=== PATIENT | female | born 1935 | race Caucasian/White ===

== ENCOUNTER 2021-06-13 10:40 | Emergency (ER) | payer MEDICARE, OTHER ==
[~2021-06-13] VITALS: Ht 165.1 cm; Wt 74.8 kg
[2021-06-13] MEDS ORDERED: ELIQUIS5 MG PO ×2 (13:28→14:02)
[2021-06-13] MEDS ORDERED: METOPROLOL SUC200 MG PO (13:29)
[2021-06-13] MEDS ORDERED: CITALOPRAM HBR10 MG PO (13:29)
[2021-06-13] MEDS ORDERED: LOSARTAN POTASS50 MG PO (13:29)
[2021-06-13] MEDS ORDERED: ROSUVASTATIN CA10 MG PO (13:30)
[2021-06-13] MEDS ORDERED: TOPROL XL200 MG PO (14:02)
== END 2021-06-13 14:15 | disposition home or self-care (01) ==
LOC: ED 10:40
DX: Z76.0 Encounter for issue of repeat prescription (principal); I48.92 Unspecified atrial flutter; Z79.899 Other long term (current) drug therapy
CPT/HCPCS: 99281

== ENCOUNTER 2021-10-08 23:55 | Emergency (ER) | payer MEDICARE, OTHER ==
[~2021-10-08] VITALS: Ht 165.1 cm; Wt 83.5 kg
[~2021-10-08 23:55] MED LIST: CITALOPRAM HBR10 MG PO; ELIQUIS5 MG PO; LOSARTAN POTASS50 MG PO; METOPROLOL SUC200 MG PO; ROSUVASTATIN CA10 MG PO; TOPROL XL200 MG PO
--- NOTE | 2021-10-09 06:39 | EKG ---
[facility] [address] [facility] [place], [place] [address] Signed Atrial fibrillation with rapid ventricular response with premature ventricular or aberrantly conducted complexes Marked ST abnormality, possible inferior subendocardial injury Marked ST abnormality, possible anterolateral subendocardial injury Abnormal ECG No previous ECGs available Confirmed by ENRIQUE KHAN MD ([id number]) on 10/09/2021 6:39:34 AM Electronically Signed By: ENRIQUE KHAN MD 10/09/21 0639 PATIENT NAME: MAURICIO STANTON Electrocardiogram DATE OF : 35 PHYSICIAN: ENRIQUE KHAN MD REPORT #: [id number] REPORT IS CONFIDENTIAL AND NOT TO BE RELEASED WITHOUT AUTHORIZATION
--- NOTE | 2021-10-09 06:40 | EKG ---
[facility] [address] [facility] [place] [address] Signed Atrial fibrillation Marked ST abnormality, possible inferior subendocardial injury Abnormal ECG When compared with ECG of 08-OCT-2021 23:58, (Unconfirmed) ST less depressed in Anterolateral leads T wave inversion less evident in Inferior leads T wave inversion no longer evident in Lateral leads Confirmed by ENRIQUE KHAN MD ([id number]) on 10/09/2021 6:40:10 AM Electronically Signed By: ENRIQUE KHAN MD 10/09/21 0640 PATIENT NAME: MAURICIO STANTON Electrocardiogram DATE OF : 35 PHYSICIAN: ENRIQUE KHAN MD REPORT #: [id number] REPORT IS CONFIDENTIAL AND NOT TO BE RELEASED WITHOUT AUTHORIZATION
== END 2021-10-09 07:47 | disposition short-term general hospital (02) ==
LOC: ED 23:55
DX: I21.4 Non-ST elevation (NSTEMI) myocardial infarction (principal); J96.91 Respiratory failure, unspecified with hypoxia; I11.0 Hypertensive heart disease with heart failure; I50.9 Heart failure, unspecified; I48.92 Unspecified atrial flutter; Z79.01 Long term (current) use of anticoagulants; Z79.899 Other long term (current) drug therapy; Z20.822 Contact with and (suspected) exposure to COVID-19
CPT/HCPCS: 36415; 71045; 74177; 80053; 83690; 83735; 83880; 84484; 85025; 85610; 85730; 93005; 93010; 96375; 99285-25; J1644; J1940; Q9967; U0003

== ENCOUNTER 2023-03-22 12:31 | Inpatient (IN) | payer MEDICARE, OTHER ==
[~2023-03-22] VITALS: Ht 165.1 cm; Wt 78.1 kg
[2023-03-22] VITALS (19 sets, daily range): BP systolic 74–144; BP diastolic 48–130
--- OUTSIDE RECORDS SUMMARY | ~2023-03-22 | XMS | Continuity of Care Document ---
Demographics + + + | Address | [address] | | | [place] [address] | + + + | Preferred Language | Unknown | + + + | Marital Status | | + + + | Buddhist Affiliation | Unknown | + + + | Race | White | + + + | Ethnic Group | Not or | + + + Author + + + | Author | Likely | + + + | Organization | Likely | + + + | Address | [address] | | | [place] [address] | + + + | Phone | | + + + Care Team Providers + + + + | Care Health Policy Nurse Name | Role | Phone | + + + + Unavailable | Unavailable | + + + + Allergies No information. Encounters No information. Functional Status No information. Immunizations No information. Medications No information. 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 Results/Labs No information. Social History +--------+ + + | date | description | facility | +--------+ + + Vital Signs No information."
--- OUTSIDE RECORDS SUMMARY | ~2023-03-22 | XMS | Continuity of Care Document ---
Demographics + + + | Address | [address] | | | [place] [address] | + + + | Preferred Language | Unknown | + + + | Marital Status | | + + + | Gnosticism Affiliation | Unknown | + + + | Race | White | + + + | Ethnic Group | Not or | + + + Author + + + | Author | [place] | + + + | Organization | [place] | + + + | Address | [address] | | | [place] [address] | + + + | Phone | | + + + Care Team Providers + + + + | Care Cutting Table Operator First Name | Role | Phone | + [...] + + + Procedures No information. Results/Labs +--------+--------+ +---------+--------+---------+ | test | date | facility | value | unit | notes | +--------+--------+ +---------+--------+---------+ + + | Result panel 1 | + + + + + +---------+ + + | BILIRUBIN, | 2023-03-22 | [facility] | 0.4 | ng/dl | (missing) | | TOTAL | 12:38 | [place] [facility] | | | | + + + +---------+ + + | BASOPHILS | 2023-03-22 | [facility] | 0.5 | % | (missing) | | | 12:38 | [place] | | | | + + + +---------+ + + | | 2023-03-22 | [facility] | 0.83 | (missing) | (missing) | | ALBUMIN/GLOB | 12:38 | [place] | | | | | [facility] | | | | | | + + + +---------+ + + | CREATININE, | 2023-03-22 | [facility] | 1.07 | mg/dl | (missing) | | SERUM | 12:38 | [facility] [facility] | | | | + + + +---------+ + + | EOSINOPHILS | 2023-03-22 | [facility] | 1.6 | % | (missing) | | | 12:38 | [place] | | | | + + + +---------+ + + | CHLORIDE | 2023-03-22 | [facility] | 102 | mmol/l | (missing) | | | 12:38 | [place] | | | | + + + +---------+ + + | HEMOGLOBIN | 2023-03-22 | [facility] | 12.0 | g/dl | (missing) | | | 12:38 | [place] | | | | + + + +---------+ + + | WBC | 2023-03-22 | [facility] | 12.2 | k/ul | (missing) | | | 12:38 | [place] | | | | + + + +---------+ + + | SODIUM | 2023-03-22 | [facility] | 138 | mmol/l | (missing) | | | 12:38 | [place] | | | | + + + +---------+ + + | ANION GAP | 2023-03-22 | [facility] | 14.0 | (missing) | (missing) | | | 12:38 | [place] | | | | + + + +---------+ + + | LYMPHOCYTES | 2023-03-22 | [facility] | 15.4 | % | (missing) | | | 12:38 | [place] | | | | + + + +---------+ + + | RDW | 2023-03-22 | [facility] | 15.6 | (missing) | (missing) | | | 12:38 | [place] | | | | + + + +---------+ + + | ALT (SGPT) | 2023-03-22 | [facility] | 17 | u/l | (missing) | | | 12:38 | [place] | | | | + + + +---------+ + + | | 2023-03-22 | [facility] | 17.75 | (missing) | (missing) | | BUN/CREATINI | 12:38 | [place] | | | | | NE RATIO | | | | | | + + + +---------+ + + | AST (SGOT) | 2023-03-22 | [facility] | 18 | u/l | (missing) | | | 12:38 | [place] | | | | + + + +---------+ + + | UREA | 2023-03-22 | [facility] | 19 | mg/dl | (missing) | | NITROGEN | 12:38 | [place] | | | | + + + +---------+ + + | GLUCOSE | 2023-03-22 | [facility] | 202 | mg/dl | (missing) | | | 12:38 | [place] | | | | + + + +---------+ + + | CARBON | 2023-03-22 | [facility] | 26 | mmol/l | (missing) | | DIOXIDE | 12:38 | [place] | | | | + + + +---------+ + + | ALBUMIN | 2023-03-22 | [facility] | 3.3 | g/dl | (missing) | | | 12:38 | [place] | | | | + + + +---------+ + + | RBC | 2023-03-22 | [facility] | 3.78 | m/ul | (missing) | | | 12:38 | [place] | | | | + + + +---------+ + + | MCH | 2023-03-22 | [facility] | 31.9 | (missing) | (missing) | | | 12:38 | [place] | | | | + + + +---------+ + + | MCHC | 2023-03-22 | [facility] | 32.5 | g/dl | (missing) | | | 12:38 | [place] | | | | + + + +---------+ + + | HEMATOCRIT | 2023-03-22 | [facility] | 37.1 | % | (missing) | | | 12:38 | [place] | | | | + + + +---------+ + + | GLOBULIN | 2023-03-22 | [facility] | 4.0 | g/dl | (missing) | | | 12:38 | [place] | | | | + + + +---------+ + + | POTASSIUM | 2023-03-22 | [facility] | 4.0 | mmol/l | (missing) | | | 12:38 | [place] | | | | + + + +---------+ + + | MONOCYTES | 2023-03-22 | [facility] | 4.8 | % | (missing) | | | 12:38 | [place] | | | | + + + +---------+ + + | PLATELET | 2023-03-22 | [facility] | 410 | k/ul | (missing) | | COUNT | 12:38 | [place] | | | | + + + +---------+ + + | GLOMERULAR | 2023-03-22 | [facility] | 50 | ml/min | (missing) | | FILTRATION | 12:38 | [place] | | | | | RATE,EST | | | | | | + + + +---------+ + + | PROTEIN, | 2023-03-22 | [facility] | 7.3 | g/dl | (missing) | | TOTAL | 12:38 | [place] | | | | + + + +---------+ + + | NEUTROPHILS | 2023-03-22 | [facility] | 77.7 | % | (missing) | | | 12:38 | [place] | | | | + + + +---------+ + + | ALKALINE | 2023-03-22 | [facility] | 81 | u/l | (missing) | | PHOSPHATASE | 12:38 | [place] | | | | + + + +---------+ + + | CALCIUM | 2023-03-22 | [facility] | 9.0 | mg/dl | (missing) | | | 12:38 | [place] | | | | + + + +---------+ + + | MCV | 2023-03-22 | [facility] | 98.2 | fl | (missing) | | | 12:38 | [place] | | | | + + + +---------+ + + Social History +--------+ + + | date | description | facility | +--------+ + + Vital Signs No information."
[2023-03-22 15:13] LABS: BASOPHILS 0.5 % (0-2); EOSINOPHILS 1.6 % (0-6); HEMATOCRIT 37.1 % (35.0-50.0); LYMPHOCYTES 15.4 % (24-44); MCH 31.9 (27-36); MCHC 32.5 g/dl (30-36); MCV 98.2 fl (81-99); MONOCYTES 4.8 % (0-12); NEUTROPHILS 77.7 % (39-80); PLATELET COUNT 410 K/uL (140-440); RBC 3.78 M/ul (4.3-5.7); RDW 15.6 (10.5-15.0)
[2023-03-22 15:20] LABS: ALBUMIN 3.3 g/dL (3.4-5.0); ALBUMIN/GLOBULIN RATIO 0.83 (1.1-2.4); BILIRUBIN, TOTAL 0.4 ng/dL (0.2-1.0); BUN/CREATININE RATIO 17.75 (6.0-28.6); CREATININE, SERUM 1.07 mg/dL (0.55-1.02); PROTEIN, TOTAL 7.3 g/dL (6.4-8.2)
--- NOTE | 2023-03-22 19:50 | NUR ---
PT ARRIVED TO UNIT VIA FLOAT RN AND CO FOUNDER AND PRESIDENT. PT TRANSITIONED TO CCU BED AND MONITOR. PT BP HYPOTENSIVE, PT ASYMPTOMATIC, DILT DRIP DECREASED TO 2.5MG/HR AND NS BOLUS STARTED. LABS OBTAINED. MULTIPLE RN'S ATTEMPTED TO START ANOTHER IV. PT ASSESSED, BEDSIDE RN SPOKE TO PT DAUGHTERS AND REVIEWED THE PLAN OF CARE FOR THE NIGHT. ALL QUESTIONS AND CONCERNS ANSWERED AT THIS TIME. CALL LIGHT WITH IN REACH.
[2023-03-22 20:27] LABS: BASOPHILS 0.2 % (0-2); EOSINOPHILS 0.1 % (0-6); HEMATOCRIT 34.3 % (35.0-50.0); HEMOGLOBIN 10.9 g/dL (12.0-18.0); LYMPHOCYTES 6.6 % (24-44); MCH 31.6 (27-36); MCHC 31.8 g/dl (30-36); MCV 99.3 fl (81-99); MONOCYTES 5.7 % (0-12); NEUTROPHILS 87.4 % (39-80); PLATELET COUNT 354 K/uL (140-440); RBC 3.45 M/ul (4.3-5.7); RDW 15.4 (10.5-15.0)
[2023-03-22 21:00] LABS: ABO B; RH NEGATIVE
[2023-03-22 21:01] LABS: ANTIBODY SCREEN NEGATIVE
--- NOTE | 2023-03-22 22:00 | NUR ---
PT HAS MULTIPLE REQUESTS AND QUESTIONS, RN ANSWERED TO THE BEST OF HER ABILITY. PATIENT HAS SEVERE DEMENTIA AND SHORT TERM MEMORY LOSS. PT EDUCATED ON WAYS TO URINATE, PT STILL UNABLE TO. MULTIPLE RN'S ATTEMPTED FOR ANOTHER IV AGAIN BUT UNSUCCESSFUL. PT REPOSITIONED AND EDUCATED TO NOT GET OUT OF BED WITHOUT HELP. BED ALARM ON AND CALL LIGHT WITHIN REACH.
--- NOTE | 2023-03-22 22:54 | NUR ---
PROVIDER UPDATED ON PT STATUS, CONTACTED FOR CONCERNS ABOUT PTS INABILITY TO URINATE. ORDERS RECIEVED. RN ALSO DISCUSSED PTS INADEQUATE PAIN CONTROL AND POTENTIAL EFFECTS OF BLEEDING AND KIDNEY FUNCTION WITH CURRENT MANAGMENT, ORDERS RECIEVED.
--- NOTE | 2023-03-22 23:18 | EKG ---
[facility] [address] [facility] [place] [address] Signed Atrial fibrillation with rapid ventricular response ST \T\ T wave abnormality, consider anterolateral ischemia Abnormal ECG When compared with ECG of 09-OCT-2021 03:31, T wave inversion now evident in Anterolateral leads Confirmed by Mini Shelley MD () on 03/22/2023 11:17:55 PM Electronically Signed By: MINI SHELLEY MD 03/22/23 2318 PATIENT NAME: MAXIMINOMAURICIO M Electrocardiogram DATE OF : 35 PHYSICIAN: MINI SHELLEY MD REPORT #: [id number] REPORT IS CONFIDENTIAL AND NOT TO BE RELEASED WITHOUT AUTHORIZATION
[2023-03-22 23:31] LABS: BILIRUBIN, URINE NEGATIVE (negative); BLOOD/HGB, URINE NEGATIVE (Negative); KETONE, URINE NEGATIVE (Negative); LEUK ESTERASE, URINE NEGATIVE (negative); NITRITE, URINE NEGATIVE (negative); PH, URINE 5.5 (5-7)
[2023-03-23] VITALS (58 sets, daily range): BP systolic 70–160; BP diastolic 41–132
--- NOTE | 2023-03-23 | NUR ---
PT GIVEN ORAL NORCO. KRUEGER CATHETER PLACED, 575ML OUT. PATIENT IS RESTLESS AND ANXIOUS. PT IS FORGETTING WHERE SHE IS AND WHY SHE IS IN THE HOSPITAL, RN REORIENTATED HER BUT PT WAS ONLY ORINETATED FOR 5 MINS BEFORE FORGETTING. PT HAS SEVERE DEMENTIA. PT HAS NO CONCERNS OR QUESTIONS AT THIS TIME. BED ALARM IN SET AND CALL LIGHT IS WITHIN REACH.
[2023-03-23 03:58] LABS: BASOPHILS 0.4 % (0-2); HEMATOCRIT 28.2 % (35.0-50.0); LYMPHOCYTES 12.9 % (24-44); MCH 31.1 (27-36); MCHC 31.8 g/dl (30-36); MCV 97.6 fl (81-99); MONOCYTES 7.1 % (0-12); NEUTROPHILS 79.6 % (39-80); PLATELET COUNT 305 K/uL (140-440); RBC 2.89 M/ul (4.3-5.7); RDW 15.2 (10.5-15.0)
--- NOTE | 2023-03-23 04:00 | NUR ---
PT ATTEMPTED TO USE BEDPAN AND WAS UNSUCCESSFUL. PT IS INCREASINGLY MORE CONFUSED AND HARDER TO REDIRECT BUT IS STILL REDIRECTABLE. PT ATTEMPTING TO GET OUT OF BED TO "GO TO HER ROOM" AND "TO GO OUTSIDE TO SMOKE A CIGARETTE". RN AT BEDSIDE FREQUENTLY, BED ALARM SET, CALL LIGHT WITHIN REACH.
[2023-03-23 04:13] LABS: ALBUMIN 2.8 g/dL (3.4-5.0); ALBUMIN/GLOBULIN RATIO 0.85 (1.1-2.4); ANION GAP 15.4 (7-21); BILIRUBIN, TOTAL 0.7 ng/dL (0.2-1.0); BUN/CREATININE RATIO 16.52 (6.0-28.6); CALCIUM 8.2 mg/dL (8.5-10.1); CREATININE, SERUM 1.21 mg/dL (0.55-1.02); MAGNESIUM 1.5 mg/dL (1.8-2.4); PHOSPHORUS, INORGANIC 3.3 mg/dL (2.5-4.9); POTASSIUM 4.4 mmol/L (3.5-5.1); PROTEIN, TOTAL 6.1 g/dL (6.4-8.2)
--- NOTE | 2023-03-23 07:00 | NUR ---
PROVIDER CONTACTED AND UPDATED ON BORDERLINE HYPONTENSIVE WELL MINIMAL URINE OUTPUT. NS BOLUS ORDERED AND .45%NS CONTINOUS FLUIDS DISCONTINUED. PT QUESTIONS AND CONCERNS ADDRESSED, BED ALARM ON, CALL LIGHT WITH IN REACH. REPORT GIVEN TO ONCOMING RN. DILT CONTINUING TO RUN AT 5MG/HR.
--- NOTE | 2023-03-23 07:34 | NUR ---
REPORT RECEIVED FROM NIGHT RN - PT RESTING IN BED ON BACK WITH EYES CLOSED AT THIS TIME, RR EVEN AND UNLABORED. BED ALARM ON WITH DOOR OPEN. DILT DRIP RATE CURRENTLY AT 5, HR 86. NS BOLUS INFUSING IN R FOREARM IV.
--- NOTE | 2023-03-23 08:36 | NUR ---
DILT DRIP TITRATED TO 2.5, HR SUSTAINING IN 80'S WITH REST IN BED. PT ORIENTED TO PLACE, SELF AND TIME - HOWEVER SOME ASPECTS OF CONVERSATION INDICATE SHORT TERM MEMORY LOSS. IV SITE PATENT X 2 - BOLUS CONTINUING TO INFUSE WITHOUT DIFFICULTY. KRUEGER PATENT AND DRAINED 25ML LAST HOUR. BED ALARM ON, PT ORIENTED TO CALL LIGHT - BUTTON PLACED FOR PT R/T INABILITY TO SEE. SIGNIFICANT VISION IMPARIMENT NOTED, PT STATES NORMAL.
--- NOTE | 2023-03-23 09:06 | NUR ---
PT'S DAUGHTER DAYLENE UPDATED VIA PHONE CALL ON PTS STATUS. DAUGHTER STATES PT IS ALWAYS CONFUSED AT HOME, DOES NOT HAVE A NORMAL SLEEP/WAKE CYCLE AND IS SOMETIMES FOUND OUTSIDE AT NIGHT TRYING TO SMOKE. SEVERE SHORT TERM MEMORY LOSS BASELINE ACCORDING TO DAUGHTER. DAUGHTER ALSO REASSURES THIS RN THAT SHE DOES NOT DRINK ALCOHOL.
--- NOTE | 2023-03-23 09:28 | NUR ---
PHYSICAL THERAPY IN ROOM TO ASSESS PT - HR SUSTAINING LESS THAN 100 WITH ACTIVITY.
--- NOTE | 2023-03-23 10:20 | NUR ---
MAG RIDER INFUSING - PT RESTING IN BED. PRN TYLENOL ADMINISTERED FOR 8/10 PAIN, PT ABLE TO PARTICIPATE WITH PHYSICAL THERAPY BED EXERCISES. FAMILY NOW IN ROOM.
[2023-03-23] MEDS ORDERED: ATORVASTATIN CA80 MG PO (10:42)
[2023-03-23] MEDS ORDERED: LO-DOSE ASPIRIN81 MG PO (10:43)
[2023-03-23] MEDS ORDERED: FUROSEMIDE40 MG PO (10:44)
[2023-03-23] MEDS ORDERED: PANTOPRAZOLE SO40 MG PO (10:45)
[2023-03-23] MEDS ORDERED: CITALOPRAM HBR40 MG PO (10:45)
[2023-03-23] MEDS ORDERED: TRAMADOL HCL50 MG PO (10:46)
[2023-03-23] MEDS ORDERED: POTASSIUM CHLO20 ME1 PO (10:46)
--- NOTE | 2023-03-23 12:10 | NUR ---
PT SITTING UP IN BED EATING LUNCH WITH ASSISTANCE FROM FAMILY. IV FLUIDS STARTED. URINE OUTPUT REMAINS LOW, TOTAL OF 30ML FOR LAST 2 HOURS. MD AWARE. WILL CONTINUE TO MONITOR. BP REMAINS SOFT. DILT DRIP AT 2.5. PT REMAINS FORGETFUL AND SIGNS OF DEMENTIA EVEN WITH FAMILY REORIENTING HER IN ROOM. BED ALARM ON.
[2023-03-23] MEDS ORDERED: CALCIUM PO (14:08)
[2023-03-23] MEDS ORDERED: [UNRECOGNIZED DRUG - OTHER] PO (14:08)
--- NOTE | 2023-03-23 14:33 | NUR ---
PT REQUESTS TO SIT AT EDGE OF BED - ABLE TO MOVE LEGS AND PULL SELF UP FROM RECLINING POSISTION TO EDGE OF BED. ORTHO STATIC BPS ATTEMTPED. PT ABLE TO STAND FOR APPROX 30 SECONDS USING FWW AND 2 STAFF ASSIST. BP NOT SIGNIFICANTLY DIFFERENT, HR ELEVATED TO 130'S WITH MOVEMENT. URINE OUTPUT HAS PICKED UP.
--- NOTE | 2023-03-23 15:30 | NUR ---
PT BECOMING AGGITATED/ANXIOUS IN BED, REMOVING GOWN AND PICKING WITH LINES. HR ELEVATED. STAFF AT BEDSIDE TO HELP REORIENT. BED ALARM ON. DILT DRIP TITRATED TO 5MG/HR.
--- NOTE | 2023-03-23 16:15 | NUR ---
PRN TYLENOL PROVIDED FOR 9/10 HEADACHE. PT ALSO REPORTS NAUSEA - ZOFRAN ADMINISTERED. ASSESSMENT UNCHANGED FROM PREVIOUS. REMAINS IN BED WITH CALL LIGHT IN REACH AND BED ALARM ON. DAUGHTERS AT SIDE ASSISTING WITH REORIENTING PT.
--- NOTE | 2023-03-23 17:37 | NUR ---
PT FOUND IN BED WITH IV PULLED AT TUBING CONNECTION WITH BLOOD ON BODY, GOWN REMOVED. PT REORIENTED, STATES "OTHER PEOPLE DID IT". PT REORIENTABLE TO SITUATION AND PLACE FOR MINUTES AT A TIME ONLY. BED LINENS CHANGED, IV SALVAGBLE AND REDRESSED.
--- NOTE | 2023-03-23 18:24 | NUR ---
prn toradol administered for 01/30 persistant pain in left pelvic region. dilt drip titrated to 7.5 mg/hr for sustained hr greater than 100. pt watching dvd player resting in bed. bed alarm on.
--- NOTE | 2023-03-23 19:00 | NUR ---
IN PT ROOM TO ASSESS PT.
--- NOTE | 2023-03-23 19:11 | NUR ---
MD NOTIFIED OF PT REPORTS OF INCREASE CENTRAL ABD PAIN WITH SOB AND NAUSEA. HR REMAINS ELEVATED DESPITE TITRATION OF DILT DRIP - BP HYPOTENSIVE. MD AT BEDSIDE TO ASSESS. NEW ORDERS RECEIVED FOR RATE CONTROL. NS BOLUS X1 STARTED.
--- NOTE | 2023-03-23 19:30 | NUR ---
INTO PT ROOM, PT REPORTS VERY ANXIOUS AND NEEDS MEDICATION FOR THIS, SAT WITH PATIENT AND USED THERAPUTIC COMMUNICATION TO REASSURE PATIENT THAT THIS RN WILL BE HER RN ALL SHIFT AND THAT THIS RN WOULD MONITOR CLOSELY AND WORK HARD TO MEET ALL PATIENT NEEDS.
[2023-03-23 19:58] LABS: HEMATOCRIT 25.3 % (35.0-50.0); HEMOGLOBIN 8.1 g/dL (12.0-18.0)
--- NOTE | 2023-03-23 20:00 | NUR ---
REVIEWED NEW ORDERS, SPOKE WITH IN REGARDS TO PT ANXIETY. NEW IV SITE ESTABLISHED FOR NEW ORDER OF LEVOPHED TO INFUSE AT LEFT AC.
[2023-03-23 20:01] LABS: MCH 31.4 (27-36); MCHC 31.9 g/dl (30-36); MCV 98.4 fl (81-99); PLATELET COUNT 268 K/uL (140-440); RBC 2.57 M/ul (4.3-5.7); RDW 15.4 (10.5-15.0)
[2023-03-23 20:12] LABS: BANDS, MANUAL DIFF 10; LYMPHOCYTES, MANUAL DIFF 11; MONOCYTES, MANUAL DIFF 1; NEUTROPHILS, MANUAL DIFF 78
--- NOTE | 2023-03-23 20:30 | NUR ---
DAUGHTERS HAD CALLED FOR UPDATE, EARLY IN SHIFT THEY ARE NOW IN PATIENT ROOM TO SPEND THE NIGHT. PT IS VISITING AND APPEARS LESS ANXIOUS AT THIS TIME WITH FAMILY IN ROOM.
--- NOTE | 2023-03-23 21:31 | NUR ---
PT PLACED TO 2L N.C. SHE WAS DESATURATING TO 87% ON ROOM AIR, SHE SAID SHE FEELS THIS WAY WHEN ANXIOUS, ANNA WITH R.T. NOTIFIED.
--- NOTE | 2023-03-23 22:36 | NUR ---
PT ADMINISTERED VISTRIL 25MG PO FOR ANXIETY AT THIS TIME. PT'S DAUGHTERS ARE AT BEDSIDE.
--- NOTE | 2023-03-23 22:45 | NUR ---
CALLED FOR UPDATE, SAME TIME DAUGHTER OUT TO NURSES STATION ASKED "CANT YOU GIVE HER SOMETHING TO HELP HER SLEEP, SHE IS GETTING COMBATIVE" RELAYED THIS SENTIMENT TO , ALSO UPDATED ON PT V/S AND HIGH ANXIETY LEVEL. SAID HE WOULD PLACE ORDER.
--- NOTE | 2023-03-23 23:34 | NUR ---
PT EXTREMELY INCOMFORTABLE IN BED, SHE CONITNUES TO SHIFT, REPORTING BACK PAIN AND PAIN AT HER LEFT HIP. PRN PAIN MEDICATIONS ADMINISTERED.
[2023-03-24] VITALS (22 sets, daily range): BP systolic 79–120; BP diastolic 48–103
[2023-03-24 01:14] LABS: PH, VENOUS 7.364 (7.31-7.41)
--- NOTE | 2023-03-24 02:00 | NUR ---
AT NURSES STATION, NEW ORDERS FOR CT ABD AND CHEST, ALSO LABS AFTER CT. TALKED TO DAUGHTER YADIRA SHE HAD CALLED FOR AN UPDATE. PT IS CURRENTLY RESTING IN BED EYES CLOSED, RESP 22/MIN, MAP 75.
--- NOTE | 2023-03-24 02:01 | NUR ---
DR SHELLEY ON UNIT, IN TO SEE PT. PLAN TO DO CT NOW. DAUGHTER CALLED IN TO UNIT ASKING FOR UPDATE, DR SHELLEY TOOK CALL AND DISCUSSED PLAN WITH DAUGHTER.
--- NOTE | 2023-03-24 03:06 | NUR ---
PT BACK TO ROOM [address] PT TOLERATED ACTIVITY WELL. PT RESTING QUIELTY IN BED EYES CLOSED, RESPIRATORY RATE 25/MIN
[2023-03-24 03:33] LABS: HEMATOCRIT 24.8 % (35.0-50.0); MCH 31.5 (27-36); MCHC 32.2 g/dl (30-36); MCV 97.8 fl (81-99); PLATELET COUNT 244 K/uL (140-440); RBC 2.54 M/ul (4.3-5.7); RDW 15.8 (10.5-15.0)
[2023-03-24 03:47] LABS: ALBUMIN 2.3 g/dL (3.4-5.0); ALBUMIN/GLOBULIN RATIO 0.7 (1.1-2.4); ANION GAP 17.3 (7-21); BANDS, MANUAL DIFF 8; BILIRUBIN, TOTAL 0.8 ng/dL (0.2-1.0); BUN/CREATININE RATIO 16.96 (6.0-28.6); CALCIUM 8.1 mg/dL (8.5-10.1); CREATININE, SERUM 1.12 mg/dL (0.55-1.02); LYMPHOCYTES, MANUAL DIFF 14; MONOCYTES, MANUAL DIFF 1; NEUTROPHILS, MANUAL DIFF 77; POTASSIUM 4.3 mmol/L (3.5-5.1); PROTEIN, TOTAL 5.6 g/dL (6.4-8.2)
--- NOTE | 2023-03-24 04:42 | NUR ---
PT RESTING IN BED COMFORTABLE, EASILY AROUSABLE, V/S STABLE ON LEVOPHED. URINE OUT IMPROVED.
--- NOTE | 2023-03-24 06:04 | NUR ---
PT ADMINISTERED LOPRESSOR PRN FOR TACHYCARDIA AT THIS TIME, HEART RATE 123/MIN
--- NOTE | 2023-03-24 08:11 | NUR ---
pt had restless night per awake overnight monitor report -currently eyes closed, resp even, rn did not wake pt. call light in reach.
--- NOTE | 2023-03-24 08:29 | NUR ---
in room with pt eyes closed hr 115, pt is restless and fidgest - apears asleept yet picking at air and blankets, arms, legs and face are twitching motion. continues to remove nc oxygen 88-93 on room air. resp 27
--- NOTE | 2023-03-24 08:41 | NUR ---
pt awakens - restless, uncooperative, removes oxygen and refuses to wear - drops to 83 room air and awake. pt does not know day, time or place. pt agitated and refuses to comply with care, bed alarm on for safety.
--- NOTE | 2023-03-24 08:55 | NUR ---
dr noble and incinerator plant supervisor called to room by rn,
--- NOTE | 2023-03-24 09:40 | NUR ---
pt restless agitated, hr 150 at rest, bp 107/81 pt hitting side of bed rails and flailing around in bed - when asked whys she doesn't know why. pt enc. to eat bananna - and take oral meds. po tylenol given for pain and lopressor given. pt reports it hurts all over. bed alarm on and call light in reach.
--- NOTE | 2023-03-24 09:45 | NUR ---
OVER TO THE UNIT, PATIENT CALLING OUT FROM ROOM. INTO SEE PATIENT, PATIENT REQUESTING TO GET UP. ADVISED I WILL SPEAK WITH NURSING STAFF TO SEE IF PATIENT IS ABLE TO STAND. TO RN STATION, PER EPIFANIO BRENNER PATIENT IS CONFUSED THIS MORNING AND HR ELEVATED. EPIFANIO RN WORKING TO CONTACT MD TO DISCUSS. PATIENT AGAIN CALLING OUT FROM THE ROOM. THIS RN TO BEDSIDE, PATIENT REQUESTING MEDICATION FOR ANXIETY. WHEN ASKED WHAT SHE TAKES AT HOME PATIENT STATES "THATS WHAT THEY ARE ANXIETY. I TAKE 2." ADVISED THAT EPIFANIO RN WILL BE INTO SPEAK WITH PATIENT SOON. IT IS NOTED THAT WHILE THIS RN WAS IN THE UNIT PATIENT EXPERIANCING CONTINUED ELEVATED HR AND ANXIETY. WILL ATTEMPT TO SPEAK WITH PATIENT DAUGHTERS FOR FURTHER DISCHARGE PLANNING WHEN PATIENT IS STABLE.
--- NOTE | 2023-03-24 10:33 | NUR ---
IN ROOM, TALKED WITH DAUGHTER JUST NOW ON PHONE,
[2023-03-24 10:34] LABS: BASE EXCESS, BLOOD GAS -13.9 mmol/L (-2-2); HCO3, BLOOD GAS 9.9 mmol/L (22-26); O2 SATURATION, BLOOD GAS 89.8 % (95.0-100.0); PCO2, BLOOD GAS 18.2 mmHg (35-45); PH, BLOOD GAS 7.35 (7.35-7.45); TOTAL CO2, BLOOD GAS 10.5
--- NOTE | 2023-03-24 11:08 | NUR ---
RN CONTINUES TO BE AT BEDSIDE, PT RESTLESS, CONFUSED AND TACHHEPTNIC RESP RATE 25-33, ENC PURSED LIP BREATHING, PT LABS TO , INCLUDING ABG FROM GRANULATOR OPERATOR SARAH, PT ON 6 L MASK FOR SATS 90 % EXTRIMITY COLD AND WITH WARM BLANKETS. DR AWARE OF POOR URINE OUTPUT.
--- NOTE | 2023-03-24 11:19 | NUR ---
MANUAL BP 85/40 RECYCLE BP AGAIN, PT RESTLESS, HYPERVENTALATING. RESTLESS, 89/69 76 MAP.
--- NOTE | 2023-03-24 11:42 | NUR ---
NEB TX GOING, DTG TO ROOM DR HERE.
[2023-03-24 11:46] LABS: HEMATOCRIT 21.5 % (35.0-50.0); HEMOGLOBIN 6.7 g/dL (12.0-18.0); MCH 31.4 (27-36); MCV 101.3 fl (81-99); PLATELET COUNT 223 K/uL (140-440); RBC 2.13 M/ul (4.3-5.7)
[2023-03-24 12:05] LABS: ALBUMIN 1.7 g/dL (3.4-5.0); ALBUMIN/GLOBULIN RATIO 0.65 (1.1-2.4); BILIRUBIN, TOTAL 0.6 ng/dL (0.2-1.0); BUN/CREATININE RATIO 14.81 (6.0-28.6); CREATININE, SERUM 1.08 mg/dL (0.55-1.02); POTASSIUM 3.8 mmol/L (3.5-5.1); PROTEIN, TOTAL 4.3 g/dL (6.4-8.2)
--- NOTE | 2023-03-24 12:05 | NUR ---
pt hr dropping while dr garner and 2 dtgs are in waiting room discussing comfort care on pt who status is decling, grand daughter at bedside with this rn, smoke control supervisor martina, charge out clerk pema and actuary manager Christina all here and assisting. and family entered room with rn and RT hue and notified team pt will now be DNR/I and comfort care. pt resp rate decreased more even and sats/bp were not readable. monitor moved to comfort care and alarms off -
[2023-03-24 12:08] LABS: BANDS, MANUAL DIFF 1; LYMPHOCYTES, MANUAL DIFF 18; MONOCYTES, MANUAL DIFF 6; NEUTROPHILS, MANUAL DIFF 75
[2023-03-24 12:09] LABS: ANION GAP 23.8 (7-21); CALCIUM 6.2 mg/dL (8.5-10.1)
--- NOTE | 2023-03-24 12:30 | NUR ---
FAMILY DAY CARE WORKER GALLO MET ME IN THE [place] AND ASKED ME TO VISIT PT THE IMPRESSION WAS SHE WAS DECLINING QUICKLY. DR MON AND SEVERAL MEMBERS OF NURSING STAFF WERE PRESENT IN ROOM. FAMILY ARRIVED. DR. MON, FAMILY DAY CARE WORKER GALLO AND I ACCOMPANIED DAUGHTERS INTO CCU WAITING ROOM. DR. MON DISCUSSED LIKELY OUTCOMES AND CARE GOALS WITH DAUGHTER. DECISION WAS MADE TO CHANGE TO COMFORT CARE. PT PASSED SHORTLY THEREAFTER. FAMILY HAD NO PREFERENCE FOR HOME. [facility] CALLED CURRENT [facility]. CALLED AT 1237.
--- NOTE | 2023-03-24 13:12 | NUR ---
pt transported by [facility] to facility after this rn completed care removing all tubes, iv, cath and cleaning pt. family aware that pt had upper dentures - no lower - reported this to [facility]. all belongings home with daughters. pt slide tr[facility] to [facility] with [facility] staff and simon dasilva. dc to [facility] facility at 1312
--- NOTE | 2023-03-24 13:52 | NUR ---
[facility] ARRIVED 1304. DEPARTED [facility] BODY 1313. PT WAS WEARING UPPER DENTURES. ALL OTHER BELONGINGS WENT WITH FAMILY.
--- NOTE | 2023-03-26 22:08 | EKG ---
[facility] [address] [place] [address] Signed Atrial fibrillation with rapid ventricular response Marked ST abnormality, possible anterior subendocardial injury Abnormal ECG When compared with ECG of 22-MAR-2023 15:41, ST more depressed in Anterior leads Nonspecific T wave abnormality, worse in Inferior leads Confirmed by Mini Shelley MD () on 03/26/2023 10:08:28 PM Electronically Signed By: MINI SHELLEY MD 03/26/23 2208 PATIENT NAME: MAURICIO STANTON Electrocardiogram DATE OF : 35 PHYSICIAN: MINI SHELLEY MD REPORT #: [id number] REPORT IS CONFIDENTIAL AND NOT TO BE RELEASED WITHOUT AUTHORIZATION
== END 2023-03-24 12:10 | DRG 309 ==
LOC: ED 12:31 → CCU 18:41
PROVIDERS: Emergency Medicine; ADMIT Family Medicine; ATTEND Family Medicine
PROC: 3E033XZ Introduction of Vasopressor into Peripheral Vein, Percutaneous Approach (ICD-10-PCS; 2023-03-23)
PROC: 4A033R1 Measurement of Arterial Saturation, Peripheral, Percutaneous Approach (ICD-10-PCS; principal; 2023-03-24)
DX: I48.91 Unspecified atrial fibrillation (principal); R65.10 Systemic inflammatory response syndrome (SIRS) of non-infectious origin without acute organ dysfunction; S32.10XA Unspecified fracture of sacrum, initial encounter for closed fracture; S32.592A Other specified fracture of left pubis, initial encounter for closed fracture; F17.210 Nicotine dependence, cigarettes, uncomplicated; S70.02XA Contusion of left hip, initial encounter; W10.8XXA Fall (on) (from) other stairs and steps, initial encounter; Z51.5 Encounter for palliative care; I48.92 Unspecified atrial flutter; F41.9 Anxiety disorder, unspecified; I10 Essential (primary) hypertension; R29.6 Repeated falls; I95.9 Hypotension, unspecified; N83.8 Other noninflammatory disorders of ovary, fallopian tube and broad ligament; N28.89 Other specified disorders of kidney and ureter; Z20.822 Contact with and (suspected) exposure to COVID-19; E83.42 Hypomagnesemia; Z71.6 Tobacco abuse counseling; Z90.49 Acquired absence of other specified parts of digestive tract; Z98.890 Other specified postprocedural states; Z79.01 Long term (current) use of anticoagulants; Z79.899 Other long term (current) drug therapy
CPT/HCPCS: 36415; 36600; 70450; 71045; 71260; 73502; 74177; 80053; 81003; 82803; 83605; 83735; 84100; 84484; 85025; 86850; 86900; 86901; 93005; 93010; 94640; 96375; 97110; 97162; 99285-25; A9270; C9803; J1885; J2405; J3475; J3490; J7030; Q0177; Q9967; U0002